=== PATIENT | male | born 1970 | race Caucasian/White ===

== ENCOUNTER 2017-07-02 14:57 | Emergency (ER) | payer BC, OTHER ==
[2017-07-02] MEDS ORDERED: Acetaminophen 325 MG Tab PO ONE (15:24)
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
--- NOTE | 2017-07-02 15:58 | CT ---
Head CT Technique: Multiple axial sections through the brain were obtained. Intravenous contrast was not utilized. Comparison: No previous intracranial imaging. Findings: Ventricles along with basal cisterns and sulci over the convexities are within normal limits. Calcifications are seen along the interhemispheric falx in 2 locations. This most likely represents incidental calcification or less likely calcified meningiomas. No abnormal parenchymal densities are seen. No evidence of intracranial hemorrhage. No midline shift or mass effect is seen. Bone window settings were reviewed which shows the visualized sinuses to appear clear. No acute calvarial abnormality is seen. Impression: 1. Calcifications along the interhemispheric falx which are felt to be benign and incidental. 2. No acute intracranial abnormality is identified. Diagnostic code #2
== END 2017-07-02 16:51 | disposition home or self-care (01) ==
LOC: JD.ED 14:57
DX: S06.0X9A Concussion with loss of consciousness of unspecified duration, initial encounter (principal); M54.6 Pain in thoracic spine; V89.2XXA Person injured in unspecified motor-vehicle accident, traffic, initial encounter
CPT/HCPCS: 70450; 99284; A9270; 99283